=== PATIENT | female | born 1985 | race African-American/Black ===

== ENCOUNTER 2017-03-30 23:57 | Emergency (ER) | payer OTHER ==
[2017-03-31 00:52] VITALS: BP 157/107; PULSE 95; TEMP 98.2; BMI 57.7
[2017-03-31] MEDS ORDERED: ALBUTEROL SO4 2.5/IPRATROPIUM 0.5 INH SOL 3 ML VIAL.NEB. NEB ONE ×2 (01:48→02:00)
--- NOTE | 2017-03-31 01:54 | PDOC ---
History of Present Illness - General Chief Complaint: Respiratory Stated Complaint: CHEST PAIN Time Seen by Provider: 03/31/17 01:37 History Source: Patient - History of Present Illness Initial Comments: 03/31/17 01:49 32 year old morbidly obese female c/o cough and chest congestion for two months. patient also reports nasal congestion, b/l ear pressure with cough. denies fever/ chills. Past History - Past Medical History Allergies/Adverse Reactions: Allergies Allergy/AdvReac Type Severity Reaction Status Date / Time amoxicillin [Amoxicillin] Allergy Unknown Verified 03/31/17 00:50 Home Medications: Ambulatory Orders Meloxicam [Mobic] 0 mg PO ASDIR 12/23/14 Albuterol Sulfate Inhaler - [Ventolin HFA Inhaler -] 1 - 2 inh PO QID PRN #1 inhaler 03/31/17 Amlodipine Besylate [Norvasc -] 0 mg PO DAILY 03/31/17 Fluticasone Prop 0.05% Nasal [Flonase -] 1 - 2 spray NS DAILY #1 spray.pump 02/05 Hydrochlorothiazide [Hctz -] 25 mg PO DAILY 03/31/17 Hydrocodone Bitartrate [Zohydro ER] 0 mg PO DAILY 03/31/17 Tramadol HCl [Ultram] 50 mg PO Q6H 03/31/17 Anemia: No - Surgical History Abdominal Surgery: Yes (gastric sleeve) - Immunization History Immunization Up to Date: No - Suicide/Smoking/Psychosocial Hx Smoking Status: Yes Smoking History: Current every day smoker Number of Cigarettes Smoked Daily: 20 Information on smoking cessation initiated: No Hx Alcohol Use: No Drug/Substance Use Hx: No Substance Use Type: None Review of Systems - Review of Systems Able to Perform ROS?: Yes Is the patient limited Latvian proficient: No HEENTM: Yes: Throat Pain, Other (ear fullness) Respiratory: Yes: Cough Cardiac (ROS): No: Symptoms Reported, See HPI, Chest Pain, Edema, Irregular Heart Rate, Lightheadedness, Palpitations, Syncope, Chest Tightness, Other *Physical Exam - Vital Signs Last Vital Signs Temp Pulse Resp BP Pulse Ox 98.2 F 95 H 16 157/107 100 03/31/17 00:50 03/31/17 00:50 03/31/17 00:50 03/31/17 00:50 03/31/17 00:50 - Physical Exam General Appearance: Yes: Appropriately Dressed HEENT: positive: Nasal Congestion, Hearing Decreased, Other (cloudy TM b/l) Respiratory/Chest: positive: Decreased Breath Sounds Gastrointestinal/Abdominal: positive: Normal Bowel Sounds, Soft Musculoskeletal: positive: Normal Inspection Extremity: positive: Normal Capillary Refill, Normal Inspection, Normal Range of Motion Integumentary: positive: Normal Color, Dry, Warm Neurologic: positive: Fully Oriented, Alert, Normal Mood/Affect Progress Note - Progress Note Progress Note: A: URI P; *DC/Admit/Observation/Transfer Diagnosis at time of Disposition: URI (upper respiratory infection) Qualifiers: URI type: unspecified viral URI Qualified Code(s): J06.9 - Acute upper respiratory infection, unspecified Reactive airway disease Qualifiers: Asthma severity: mild Asthma persistence: persistent Asthma complication type: uncomplicated Qualified Code(s): J45.30 - Mild persistent asthma, uncomplicated - Discharge Dispostion Disposition: HOME - Prescriptions Prescriptions: Albuterol Sulfate Inhaler - [Ventolin HFA Inhaler -] 1 - 2 inh PO QID PRN #1 inhaler PRN Reason: Cough Fluticasone Prop 0.05% Nasal [Flonase -] 1 - 2 spray NS DAILY #1 spray.pump - Referrals - Patient Instructions Printed Discharge Instructions: DI for Reactive Airway Disease-Adult Additional Instructions: for perisstent cough use albuterol inhaler every 6 hours as needed use flonase as directed. follow up with your doctor as soon as possible. return to the ER if symptoms worsen/ - Post Discharge Activity
[2017-03-31] MEDS: ALBUTEROL SO4 2.5/IPRATROPIUM 0.5 INH SOL 3 ML VIAL.NEB. NEB SCH ×4 (02:00→02:54)
--- NOTE | 2017-03-31 02:06 | PDOC ---
*Physical Exam - Vital Signs Last Vital Signs Temp Pulse Resp BP Pulse Ox 98.2 F 95 H 16 157/107 100 03/31/17 00:50 03/31/17 00:50 03/31/17 00:50 03/31/17 00:50 03/31/17 00:50 Medical Decision Making - Medical Decision Making 03/31/17 02:05 agree with care from CARMELA Rodas *DC/Admit/Observation/Transfer Diagnosis at time of Disposition: URI (upper respiratory infection), Reactive airway disease - Discharge Dispostion Disposition: HOME - Prescriptions Prescriptions: Albuterol Sulfate Inhaler - [Ventolin HFA Inhaler -] 1 - 2 inh PO QID PRN #1 inhaler PRN Reason: Cough Fluticasone Prop 0.05% Nasal [Flonase -] 1 - 2 spray NS DAILY #1 spray.pump - Referrals - Patient Instructions Printed Discharge Instructions: DI for Reactive Airway Disease-Adult Additional Instructions: for perisstent cough use albuterol inhaler every 6 hours as needed use flonase as directed. follow up with your doctor as soon as possible. return to the ER if symptoms worsen/ - Post Discharge Activity
[2017-03-31] MEDS ORDERED: ALBUTEROL SO4 2.5/IPRATROPIUM 0.5 INH SOL 3 ML VIAL.NEB. NEB SCH (08:00)
== END 2017-03-31 04:13 | disposition home or self-care (01) ==
LOC: JER 23:57
PROC: 3E0F7GC Introduction of Other Therapeutic Substance into Respiratory Tract, Via Natural or Artificial Opening (ICD-10-PCS; principal; 2017-03-30)
DX: J06.9 Acute upper respiratory infection, unspecified (principal)
CPT/HCPCS: 71046-TC; 87070; 87430; 99281-25

== ENCOUNTER 2018-12-06 10:54 | Emergency (ER) | payer OTHER ==
[2018-12-06 11:01] VITALS: TEMP 98.2; BMI 63.5
[2018-12-06] MEDS ORDERED: HYDROCHLOROTHIAZIDE 25 MG TABLET (FP) PO ONE (11:39)
[2018-12-06] MEDS ORDERED: amLODIPine BESYLATE 10 MG TABLET (FP) PO ONE (11:39)
[2018-12-06] MEDS ORDERED: amLODIPine BESYLATE 5 MG TABLET (FP) ONE (12:30)
[2018-12-06] MEDS ORDERED: HYDROCHLOROTHIAZIDE 25 MG TABLET (FP) ONE ×2 (12:30→12:31)
[2018-12-06 13:07] LABS: ALBUMIN 3.7 g/dl (3.4-5.0); BILIRUBIN,TOTAL 0.2 mg/dL (0.2-1); BLOOD UREA NITROGEN 11.8 mg/dL (7-18); CALCIUM 9.1 mg/dL (8.5-10.1); CREATININE 0.8 mg/dL (0.55-1.3); POTASSIUM 3.8 mmol/L (3.5-5.1); TOT PROT 8.4 g/dl (6.4-8.2)
--- NOTE | 2018-12-06 13:08 | PDOC ---
Documentation entered by Yanni Ku SCRIBE, acting as scribe for Pam Arguelles MD. Pam Arguelles MD: This documentation has been prepared by the [place] amanda Adrianna, SCRIBE, under my direction and personally reviewed by me in its entirety. I confirm that the documentation accurately reflects all work, treatment, procedures, and medical decision making performed by me. History of Present Illness - General Chief Complaint: Edema Stated Complaint: SWELLING / SORE - History of Present Illness Initial Comments: The patient is a 33 year old female, with a significant PMH of morbid obesity, HTN, and OA, who presents to the ED for evaluation of multiple complaints, the worst being bilateral LE swelling for 2 days. Patient notes sudden onset bilateral LE swelling. Patient notes her left foot is significant more swollen, and has become painful and red. Patient notes the pain is most prominent on the lateral aspect of the left foot and radiates up to the lateral aspect of the left knee. She endorses some swelling of the RLE but denies pain or redness there. She denies fall or trauma to the area. Patient endorses associated SOB and cough. She additionally complains of bilateral bicep pain (L>R) for months, and notes she feels as if her veins are hard and swollen. Patient notes she has been off of her HTN medications for months, and notes it was elevated today at 227/136. Patient states she went to the [facility] today for her annual visit, and after her eyes were dilated the doctor noted that her blood vessel was swollen and she needed to come for immediate evaluation. Allergies: Amoxicillin, lorenzana Surgical History: Gastric sleeve Social History: Current smoker (notes she quit this morning, but typically smoked 6 cigarettes per day for 20 years). Occasional marijuana use. Denies EtOH use. PCP: Dr. Gutierrze Past History - Past Medical History Allergies/Adverse Reactions: Allergies Allergy/AdvReac Type Severity Reaction Status Date / Time amoxicillin [Amoxicillin] Allergy Unknown Verified 12/06/18 11:01 lorenzana Allergy Uncoded 12/06/18 11:01 Home Medications: Ambulatory Orders Albuterol Sulfate Inhaler - [Ventolin HFA Inhaler -] 1 - 2 inh PO QID PRN #1 inhaler 03/31/17 Amlodipine Besylate [Norvasc -] 5 mg PO DAILY 03/31/17 Hydrochlorothiazide [Hctz -] 25 mg PO DAILY 03/31/17 Amlodipine Besylate [Norvasc -] 5 mg PO DAILY #30 tablet 12/06/18 Doxycycline Hyclate [Vibramycin -] 100 mg PO BID #10 capsule 12/06/18 Hydrochlorothiazide [Hctz -] 25 mg PO DAILY #30 tablet 12/06/18 Anemia: No COPD: No HTN: Yes Other medical history: morbid obesity - Surgical History Abdominal Surgery: Yes (gastric sleeve) - Immunization History Immunization Up to Date: No - Suicide/Smoking/Psychosocial Hx Smoking Status: Yes Smoking History: Current every day smoker Have you smoked in the past 12 months: No Number of Cigarettes Smoked Daily: 10 Information on smoking cessation initiated: No Hx Alcohol Use: No Drug/Substance Use Hx: No Substance Use Type: None Review of Systems - Review of Systems Comments:: GENERAL/CONSTITUTIONAL: +Hypertensive (227/136). No fever or chills. No weakness. HEAD, EYES, EARS, NOSE AND THROAT: No change in vision. No ear pain or discharge. No sore throat. CARDIOVASCULAR: +SOB. No chest pain. RESPIRATORY: +Cough. No wheezing or hemoptysis. GASTROINTESTINAL: No nausea, vomiting, diarrhea or constipation. GENITOURINARY: No dysuria, frequency, or change in urination. MUSCULOSKELETAL: +bilateral LE swelling (L>R). +Left lateral foot pain and redness that radiates to the lateral aspect of the left knee. +Bilateral bicep pain (L>R), feels as if her veins are hard and swollen. No neck or back pain. SKIN: No rash NEUROLOGIC: No headache, vertigo, loss of consciousness, or change in strength/ sensation. ENDOCRINE: No increased thirst. No abnormal weight change. HEMATOLOGIC/LYMPHATIC: No anemia, easy bleeding, or history of blood clots. ALLERGIC/IMMUNOLOGIC: No hives or skin allergy. *Physical Exam - Vital Signs Last Vital Signs Temp Pulse Resp BP Pulse Ox 98.2 F 96 H 19 227/136 H 98 12/06/18 10:56 12/06/18 10:56 12/06/18 10:56 12/06/18 10:56 12/06/18 10:56 - Physical Exam Comments: GENERAL: +Morbidly obese. Awake, alert, and oriented. The patient is in no acute distress. HEAD: Normal with no signs of trauma. EYES: PERRLA, EOMI, sclera anicteric, conjunctiva clear. ENT: Ears normal, nares patent, oropharynx clear without exudates. Moist mucous membranes. NECK: Normal range of motion, supple without lymphadenopathy, JVD, or masses. LUNGS: Breath sounds equal, clear to auscultation bilaterally. No wheezes, and no crackles. HEART:Regular rate and rhythm, normal S1 and S2 without murmur, rub or gallop. ABDOMEN: Soft, nontender, normoactive bowel sounds. No guarding, no rebound. No masses palpable. EXTREMITIES:+Bilateral lower extremity edema. +Left lateral malleolus tenderness to palption. +Left proximal fibula tenderness to palpation. + Bilateral upper extremity edema. Normal range of motion. No clubbing or cyanosis. No erythema, or tenderness. NEUROLOGICAL: Cranial nerves II through XII grossly intact. Normal speech. No focal neurological deficits. MUSCULOSKELETAL: Back non-tender to palpation, no CVA tenderness SKIN: Warm, Dry, normal turgor, no rashes or lesions noted. ED Treatment Course - LABORATORY CBC & Chemistry Diagram: 12/06/18 17:00 12/06/18 12:25 - RADIOLOGY Radiograph Interpretation: EXAM#: TYPE/EXAM: RESULT: [id number] US/DUPLEX VASCUL US-2LEGS Bilateral lower extremity edema Impression: Very poor/nonvisualization of the mid and distal portion of the femoral vein, bilaterally that may be due to the patient's body habitus. Otherwise, there is no evidence of deep venous thrombosis in visualized portion of the deep veins of the right and left lower extremity. Small Reyez's cyst in the right and left popliteal fossa, as described above. Reported By: Nisreen Kaba MD 12/06/18 1450 EXAM#: TYPE/EXAM: RESULT: [id number] US/DUPLEX VASCUL US-1 ARM Left upper extremity swelling Left upper extremity ultrasound. IMPRESSION: Nonvisualization of the distal portion of the brachial vein. Otherwise, there is no evidence of deep venous thrombosis in the left upper extremity including the jugular and subclavian vein. Normal flow in the cephalic vein. Normal flow in visualized portion of the proximal and mid basilic vein. The rest of the basilic vein was not seen. Reported By: Nisreen Kaba MD 12/06/18 14:54 EXAM#: TYPE/EXAM: RESULT: RAD/ANKLE-LEFT HISTORY PROVIDED: Ankle tenderness. IMPRESSION: Soft tissue swelling with no fracture or acute pathology. Reported By: Geovany Kinney MD 12/06/18 16:17 EXAM#: TYPE/EXAM: RESULT: [id number] RAD/KNEE 3 POS-LEFT HISTORY PROVIDED: Knee pain IMPRESSION: Moderate degenerative arthritis with no fracture or acute bone or joint abnormalities. Reported By: Geovany Kinney MD 12/06/18 16:18 Medical Decision Making - Critical Care Time Total Critical Care Time (minutes): 60 Critical Care Statement: The care of this patient involved high complexity decision making to prevent further life threatening deterioration of the patient 's condition and/or to evaluate & treat vital organ system(s) failure or risk of failure. - Medical Decision Making Ms. Randolph is a 33 yo F h/o morbid obesity, HTN (not on any medications) Pt presents to the ER with a complaint of leg swelling Pt has noted progressively worsening bilateral lower extremity edema Pt denies chest pain, headache, shortness of breath, back pain Pt has not followed up with her PMD ([place]) 12/06/18 13:22 Laboratory Tests 12/06/18 12/06/18 12/06/18 12:25 12:25 12:25 Sodium 137 Potassium 3.8 Chloride 102 Carbon Dioxide 31 BUN 11.8 Creatinine 0.8 Random Glucose 100 Creatine Kinase 104 Troponin I < 0.02 B-Natriuretic Peptide 255.7 H 12/06/18 14:25 EKG - NSR rate of 93 bpm, axis nml, no st elevation or depression LVH! US pending 12/06/18 16:05 Duplex - no DVT noted LUE us - No DVT noted Xrays demonstrate no fracture or dislocation 12/06/18 17:36 possible left leg cellulitis Pt is not sure about her allergic reaction Will give doxy and align (pt has taken clindamycin in the past with severe diarrhea) Pt BP decreased to 180/89 with NOT chest pain, dizziness, weakness Pt encouraged strongly to take these medications as prescribed, follow up with pmd as already scheduled, initiate an exercise program (Walking or swimming) and reducing significantly intake of refined carbohydrates Clinical Impression: essential hypertension, initial presentation possible cellulitis, initial presentation Morbid obesity, initial presentation *DC/Admit/Observation/Transfer Diagnosis at time of Disposition: Morbid obesity High blood pressure Qualifiers: Hypertension type: essential hypertension Qualified Code(s): I10 - Essential ( primary) hypertension - Discharge Dispostion Disposition: HOME Condition at time of disposition: Stable Decision to Admit order: No - Prescriptions Prescriptions: Amlodipine Besylate [Norvasc -] 5 mg PO DAILY #30 tablet Doxycycline Hyclate [Vibramycin -] 100 mg PO BID #10 capsule Hydrochlorothiazide [Hctz -] 25 mg PO DAILY #30 tablet - Referrals Referrals: Milady Gutierrez [Primary Care Provider] - - Patient Instructions Printed Discharge Instructions: Essential Hypertension, DI for High Blood Pressure Additional Instructions: Ms Randolph, Thank you for coming in to the ER today Please be sure to follow up with your primary care physician as already scheduled Please start taking your blood pressure medications Please review your lab results - Post Discharge Activity
--- NOTE | 2018-12-06 15:07 | EKG ---
Test Reason : Blood Pressure : / mmHG Vent. Rate : 093 BPM Atrial Rate : 093 BPM P-R Int : 186 ms QRS Dur : 100 ms QT Int : 372 ms P-R-T Axes : 061 -11 086 degrees QTc Int : 462 ms NORMAL SINUS RHYTHM VOLTAGE CRITERIA FOR LEFT VENTRICULAR HYPERTROPHY ABNORMAL ECG WHEN COMPARED WITH ECG OF 03-JAN-2001 12:21, T WAVE INVERSION NOW EVIDENT IN LATERAL LEADS Confirmed by JUSTINE CLAIRE, MIGUEL ([id number]) on 12/06/2018 3:07:03 PM Referred By: Confirmed By:MIGUEL FLETCHER MD
[2018-12-06 17:17] LABS: BASO % 0.4 % (0-2.0); EOS % 5.6 % (0-4.5); HEMATOCRIT 27.7 % (32.4-45.2); HEMOGLOBIN 8.1 GM/dL (10.7-15.3); LYMPH % 22.5 % (8-40); MCHC 29.4 g/dl (32.0-36.0); MEAN CELL VOLUME 61.1 fl (80-96); MEAN PLT VOLUME 9.1 fl (7.5-11.1); MONO % 6.8 % (3.8-10.2); NEUT % 64.7 % (42.8-82.8); PLATELET COUNT 324 K/MM3 (134-434); RBC 4.53 M/mm3 (3.60-5.2); RDW 20.6 % (11.6-15.6); WHITE BLOOD COUNT 10.8 K/mm3 (4.0-10.0)
[2018-12-06 17:56] VITALS: BP 180/110; PULSE 79
[2018-12-06 20:04] LABS: ANISOCYTOSIS 3+; PLATELET ESTIMATE NORMAL
== END 2018-12-06 17:56 | disposition home or self-care (01) ==
LOC: JER 10:54
DX: I10 Essential (primary) hypertension (principal); L03.116 Cellulitis of left lower limb; E66.01 Morbid (severe) obesity due to excess calories; Z68.44 Body mass index [BMI] 60.0-69.9, adult; M79.604 Pain in right leg; M79.605 Pain in left leg
CPT/HCPCS: 36415; 71046-TC-FY; 73562-TC-LT-FY; 73610-TC-LT-FY; 80053; 82550; 83880; 84484; 84703; 85025; 87040; 93005; 93010; 93970-TC; 93971; 99284-25